=== PATIENT | male | born 1980 | race Asian ===

== ENCOUNTER 2025-06-26 12:52 | Emergency (ER) | payer OTHER, SELFPAY ==
[2025-06-26 12:58] VITALS: BP 131/75
--- NOTE | 2025-06-26 13:10 | ED.GENMED ---
History of Present Illness
<Ingrid Reynolds PA-C - Last Filed: 06/26/25 22:21>
General
Chief Complaint: Foreign Body Ingestion
Source: patient and police
Exam Limitations: none
Time Seen by Provider: 06/26/25 13:10
Nursing documentation reviewed up to this point in time: agreed with
History of Present Illness
History of Present Illness:
Patient is a 45-year-old male who presents in police custody with concern for potential ingested foreign body. Patient was being transported from [facility] residential to [facility] detention prior to court hearing. During the intake process he had
a 'scan' performed which showed an abnormality in his abdomen. He was brought to the emergency department for medical clearance to rule out ingested foreign body.
Patient denies ingesting any foreign bodies. He denies swallowing any drugs or other substances. He states that he only had porridge and eggs this morning.
Patient denies any abdominal pain or episodes of vomiting. He has not had any fevers. No chest pain, shortness of breath, or cough.
Review of Systems
<Ingrid Reynolds PA-C - Last Filed: 06/26/25 22:21>
Review of Systems
Allergies reviewed?: Yes
All Other Systems: ROS reviewed and negative except as documented in HPI and ROS
Phy Exam
<Ingrid Reynolds PA-C - Last Filed: 06/26/25 22:21>
Physical Exam
Physical Exam:
Vitals: Hypertensive, otherwise vital signs stable. Afebrile
General: Patient is well appearing, no acute distress. Nontoxic appearing
Skin: Warm and dry, no rashes or lesions
Head: Normocephalic, atraumatic
Throat: Protecting airway
Neck: Normal ROM, no cervical spine tenderness
Cardiac: Regular rate and rhythm.
Pulm: No apparent respiratory distress. Lungs clear bilaterally
Abdomen: Abdomen soft and nontender.
Extremities: No evidence of cyanosis or edema
Neuro: Grossly intact
Psychiatric: Normal affect.
Course
<Ingrid Reynolds PA-C - Last Filed: 06/26/25 22:21>
Orders/Labs/Results
Orders:
Orders
06/26/25 13:25
CR Abdomen - 1 View Urgent
Comment:
Reason For Exam: potential swallowed foreign body from residential
Vital Signs
Initial and Last Documented VS:
Initial Vital Signs
Temp Pulse Resp BP Pulse Ox
98.1 F 67 18 131/75 98
06/26/25 12:58 06/26/25 12:58 06/26/25 12:58 06/26/25 12:58 06/26/25 12:58
Last Documented Vital Signs
Temp Pulse Resp BP Pulse Ox
98.1 F 67 18 131/75 98
06/26/25 12:58 06/26/25 12:58 06/26/25 12:58 06/26/25 12:58 06/26/25 13:47
<Kim Oneil DO - Last Filed: >
Orders/Labs/Results
Orders:
Orders
06/26/25 13:25
CR Abdomen - 1 View Urgent
Comment:
Reason For Exam: potential swallowed foreign body from residential
Vital Signs
Initial and Last Documented VS:
Initial Vital Signs
Temp Pulse Resp BP Pulse Ox
98.1 F 67 18 131/75 98
06/26/25 12:58 06/26/25 12:58 06/26/25 12:58 06/26/25 12:58 06/26/25 12:58
Last Documented Vital Signs
Temp Pulse Resp BP Pulse Ox
98.1 F 67 18 131/75 98
06/26/25 12:58 06/26/25 12:58 06/26/25 12:58 06/26/25 12:58 06/26/25 13:47
<Ingrid Reynolds PA-C - Last Filed: 06/26/25 22:21>
MDM/Problems Addressed
Differential Diagnosis Includes:
Not limited to: Constipation, bowel gas, ingested foreign body, etc.
MDM/Problems Addressed:
45-year-old male presents from residential for evaluation of a possible ingested foreign body after an abnormality was reportedly seen on an intake scan at the detention. The patient denies ingesting any foreign body or substance and reports no abdominal
pain, nausea, or vomiting.
Vitals are stable. On examination, he is well-appearing, in no distress, and has a soft, non-tender abdomen without distension or peritoneal signs.
An abdominal X-ray was obtained, which shows no evidence of any radiopaque foreign body or obstruction. Discussed with patient and park guard that It is unclear what was noted on initial scan however may represent stool or bowel gas artifact. The
patient continues to deny any ingestion and remains asymptomatic.
Given his stable condition, benign abdominal exam, and negative imaging, no further diagnostic studies or interventions are indicated at this time. The patient is safe for discharge back to the correctional facility with instructions to return for
new or worsening symptoms such as abdominal pain, vomiting, or inability to tolerate food or fluids.
Chronic conditions affecting care:
N/A
Acute Exacerbation and/or Progression of Chronic Illness:
N/A
<Ingrid Reynolds PA-C - Last Filed: 06/26/25 22:21>
*Radiology
Radiology exam reviewed: radiology read reviewed
*Pulse Oximetry
Patient hypoxic: no
*EKG
Interpreted by ED Provider?: NA
*Cotton Ball Bagger Interpretation
Rate: Cotton Ball Bagger- N/A
*Critical Care Note
Total Time (30-74mins, 75-104mins- exclusive of procedures): Not Applicable
<Kim Oneil DO - Last Filed: >
*Pulse Oximetry
SaO2: 98
Oxygen Mode of Delivery: Room air
ED Attending Note
<Kim Oneil, DO - Last Filed: >
-
Portions of this chart may have been created with voice recognition software.� Occasional wrong word or��sound alike� substitutions may have occurred due to the inherent limitations of voice recognition software.
Discharge Plan
Departure
Patient Disposition: [facility]
Date of Disposition: 06/26/25
Time of Disposition: 15:29
Patient with high blood pressure during this ER visit?: Yes
Condition: Good
Discharge Problem:
No foreign body found on evaluation
Instructions: BLOOD PRESSURE
Referrals:
[facility] [Family Provider, General]
Activity Restrictions/Additional Instructions:
RETURN TO THE EMERGENCY DEPARTMENT WITH ANY CHEST PAIN, SHORTNESS OF BREATH, VOMITING, ABDOMINAL PAIN, OR ANY OTHER CONCERNS
- The abdominal x-ray obtained in the emergency department showed no definitive radiopaque foreign body
Monitor symptoms closely and return to the emergency department with any acute worsening/new symptoms or any other concern
PATIENT IS MEDICALLY CLEARED FOR INCARCERATION
Interventions
Interventions:
*Risk Screen - Suicide Last Done: 06/26/25 12:58
*General Assessment Last Done: 06/26/25 12:58
*Neglect/Abuse Screening Last Done: 06/26/25 12:58
*Nursing Disposition Last Done: 06/26/25 15:35
ED- Pulmonary Assessment Last Done: 06/26/25 12:58
Discharge Date and Time
Discharge Date/Time: 06/26/25 15:35
Print Language: MALDIVIAN
== END 2025-06-26 15:35 ==
LOC: EMR 12:52
PROVIDERS: EMERGENCY PHYSICIAN Student in an Organized Health Care Education/Training Program
DX: Z01.89 Encounter for other specified special examinations (principal); R03.0 Elevated blood-pressure reading, without diagnosis of hypertension
CPT/HCPCS: 99283; 74018